=== PATIENT | female | born 1985 | race Caucasian/White ===

== ENCOUNTER 2023-06-07 11:04 | Outpatient (AMB) | payer OTHER, SELFPAY ==
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
== END 2023-06-07 11:33 | disposition home or self-care (01) ==
LOC: HO.HOP 11:04
PROVIDERS: PCP Advanced Practice Midwife; Visit Provider Clinical Nurse Specialist Psychiatric/Mental Health
DX: F43.12 Post-traumatic stress disorder, chronic (principal); F42.9 Obsessive-compulsive disorder, unspecified; F40.01 Agoraphobia with panic disorder
CPT/HCPCS: 90833; 99213

== ENCOUNTER → 2023-06-07 11:04 | Outpatient (BNVA) | payer OTHER, SELFPAY | PROVIDERS: PCP Advanced Practice Midwife; Visit Provider Clinical Nurse Specialist Psychiatric/Mental Health | DX: F43.10 Post-traumatic stress disorder, unspecified (principal); F42.9 Obsessive-compulsive disorder, unspecified; F40.01 Agoraphobia with panic disorder; Z79.899 Other long term (current) drug therapy | CPT/HCPCS: 99212 ==

== ENCOUNTER 2023-07-13 13:04 | Outpatient (AMB) | payer OTHER, SELFPAY ==
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
== END 2023-07-13 13:29 | disposition home or self-care (01) ==
LOC: HO.HOP 13:04
PROVIDERS: PCP Advanced Practice Midwife; Visit Provider Clinical Nurse Specialist Psychiatric/Mental Health
DX: F42.2 Mixed obsessional thoughts and acts (principal); F41.0 Panic disorder [episodic paroxysmal anxiety]; F31.81 Bipolar II disorder
CPT/HCPCS: 90833; 99214

== ENCOUNTER → 2023-07-13 13:04 | Outpatient (BNVA) | payer OTHER, SELFPAY | PROVIDERS: PCP Advanced Practice Midwife; Visit Provider Clinical Nurse Specialist Psychiatric/Mental Health | DX: F42.2 Mixed obsessional thoughts and acts (principal); F42.9 Obsessive-compulsive disorder, unspecified; F41.0 Panic disorder [episodic paroxysmal anxiety]; F31.81 Bipolar II disorder; F90.9 Attention-deficit hyperactivity disorder, unspecified type | CPT/HCPCS: 99212 ==

== ENCOUNTER 2023-09-13 14:42 | Outpatient (AMB) | payer OTHER, SELFPAY ==
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
== END 2023-09-13 14:42 | disposition home or self-care (01) ==
LOC: HO.HOP 14:42
PROVIDERS: PCP Advanced Practice Midwife; Visit Provider Clinical Nurse Specialist Psychiatric/Mental Health
DX: F31.77 Bipolar disorder, in partial remission, most recent episode mixed (principal); F90.2 Attention-deficit hyperactivity disorder, combined type; F41.1 Generalized anxiety disorder
CPT/HCPCS: 90833; 99214

== ENCOUNTER → 2023-09-13 14:42 | Outpatient (BNVA) | payer OTHER, SELFPAY | PROVIDERS: PCP Advanced Practice Midwife; Visit Provider Clinical Nurse Specialist Psychiatric/Mental Health ==

== ENCOUNTER 2023-10-16 15:50 | Outpatient (AMB) | payer OTHER, SELFPAY ==
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
== END 2023-10-16 15:51 | disposition home or self-care (01) ==
LOC: HO.HOP 15:50
PROVIDERS: PCP Advanced Practice Midwife; Visit Provider Clinical Nurse Specialist Psychiatric/Mental Health
DX: F41.1 Generalized anxiety disorder (principal); F90.2 Attention-deficit hyperactivity disorder, combined type; F31.77 Bipolar disorder, in partial remission, most recent episode mixed
CPT/HCPCS: 90833; 99214

== ENCOUNTER → 2023-10-16 15:50 | Outpatient (BNVA) | payer OTHER, SELFPAY | PROVIDERS: PCP Advanced Practice Midwife; Visit Provider Clinical Nurse Specialist Psychiatric/Mental Health | DX: F41.1 Generalized anxiety disorder (principal); F90.2 Attention-deficit hyperactivity disorder, combined type; F31.77 Bipolar disorder, in partial remission, most recent episode mixed ==

== ENCOUNTER 2023-12-05 13:58 | Outpatient (AMB) | payer OTHER, SELFPAY ==
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
== END 2023-12-05 13:59 | disposition home or self-care (01) ==
LOC: HO.HOP 13:58
PROVIDERS: PCP Advanced Practice Midwife; Visit Provider Clinical Nurse Specialist Psychiatric/Mental Health
DX: F41.1 Generalized anxiety disorder (principal); F90.2 Attention-deficit hyperactivity disorder, combined type; F31.77 Bipolar disorder, in partial remission, most recent episode mixed
CPT/HCPCS: 99214

== ENCOUNTER → 2023-12-05 13:58 | Outpatient (BNVA) | payer OTHER, SELFPAY | PROVIDERS: PCP Advanced Practice Midwife; Visit Provider Clinical Nurse Specialist Psychiatric/Mental Health | DX: F31.70 Bipolar disorder, currently in remission, most recent episode unspecified (principal); F41.1 Generalized anxiety disorder; F90.2 Attention-deficit hyperactivity disorder, combined type | CPT/HCPCS: 99212 ==

== ENCOUNTER 2024-02-02 11:44 | Outpatient (AMB) | payer OTHER, SELFPAY ==
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
== END 2024-02-02 11:45 | disposition home or self-care (01) ==
LOC: HO.HOP 11:44
PROVIDERS: PCP Advanced Practice Midwife; Visit Provider Clinical Nurse Specialist Psychiatric/Mental Health
DX: F41.1 Generalized anxiety disorder (principal); F90.2 Attention-deficit hyperactivity disorder, combined type; F31.77 Bipolar disorder, in partial remission, most recent episode mixed
CPT/HCPCS: 90833; 99214

== ENCOUNTER → 2024-02-02 11:44 | Outpatient (BNVA) | payer OTHER, SELFPAY | PROVIDERS: PCP Advanced Practice Midwife; Visit Provider Clinical Nurse Specialist Psychiatric/Mental Health | DX: F41.1 Generalized anxiety disorder (principal); F90.2 Attention-deficit hyperactivity disorder, combined type; F31.77 Bipolar disorder, in partial remission, most recent episode mixed | CPT/HCPCS: 99212 ==

== ENCOUNTER 2024-03-08 10:35 | Outpatient (AMB) | payer OTHER, SELFPAY ==
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
== END 2024-03-08 10:36 | disposition home or self-care (01) ==
LOC: HO.HOP 10:35
PROVIDERS: PCP Advanced Practice Midwife; Visit Provider Clinical Nurse Specialist Psychiatric/Mental Health
DX: F41.1 Generalized anxiety disorder (principal); F90.2 Attention-deficit hyperactivity disorder, combined type; F31.77 Bipolar disorder, in partial remission, most recent episode mixed
CPT/HCPCS: 99214

== ENCOUNTER 2024-05-10 10:40 | Outpatient (AMB) | payer OTHER, SELFPAY ==
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
== END 2024-05-10 10:51 | disposition home or self-care (01) ==
LOC: HO.HOP 10:40
PROVIDERS: PCP Advanced Practice Midwife; Visit Provider Clinical Nurse Specialist Psychiatric/Mental Health
DX: F41.1 Generalized anxiety disorder (principal); F90.2 Attention-deficit hyperactivity disorder, combined type; F31.77 Bipolar disorder, in partial remission, most recent episode mixed; F43.20 Adjustment disorder, unspecified
CPT/HCPCS: 90833; 99214

== ENCOUNTER → 2024-05-10 10:40 | Outpatient (BNVA) | payer OTHER, SELFPAY | PROVIDERS: PCP Advanced Practice Midwife; Visit Provider Clinical Nurse Specialist Psychiatric/Mental Health | DX: F41.1 Generalized anxiety disorder (principal); F90.2 Attention-deficit hyperactivity disorder, combined type; F31.77 Bipolar disorder, in partial remission, most recent episode mixed ==

== ENCOUNTER 2024-07-04 10:51 | Outpatient (AMB) | payer OTHER, SELFPAY ==
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
== END 2024-07-04 10:52 | disposition home or self-care (01) ==
LOC: HO.HOP 10:51
PROVIDERS: PCP Advanced Practice Midwife; Visit Provider Clinical Nurse Specialist Psychiatric/Mental Health
DX: F31.77 Bipolar disorder, in partial remission, most recent episode mixed (principal); F43.20 Adjustment disorder, unspecified; F41.1 Generalized anxiety disorder; F90.2 Attention-deficit hyperactivity disorder, combined type
CPT/HCPCS: 99214

== ENCOUNTER → 2024-07-04 10:51 | Outpatient (BNVA) | payer OTHER, SELFPAY | PROVIDERS: PCP Advanced Practice Midwife; Visit Provider Clinical Nurse Specialist Psychiatric/Mental Health | DX: F41.1 Generalized anxiety disorder (principal); F90.2 Attention-deficit hyperactivity disorder, combined type; F31.77 Bipolar disorder, in partial remission, most recent episode mixed; F43.20 Adjustment disorder, unspecified; F31.70 Bipolar disorder, currently in remission, most recent episode unspecified | CPT/HCPCS: 99212 ==

== ENCOUNTER 2024-08-15 11:59 | Outpatient (AMB) | payer OTHER, SELFPAY ==
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
== END 2024-08-15 12:00 | disposition home or self-care (01) ==
LOC: HO.HOP 11:59
PROVIDERS: PCP Advanced Practice Midwife; Visit Provider Clinical Nurse Specialist Psychiatric/Mental Health
DX: F41.1 Generalized anxiety disorder (principal); F90.2 Attention-deficit hyperactivity disorder, combined type; F31.77 Bipolar disorder, in partial remission, most recent episode mixed; F43.21 Adjustment disorder with depressed mood
CPT/HCPCS: 99214

== ENCOUNTER 2024-09-17 11:34 | Outpatient (AMB) | payer OTHER, SELFPAY ==
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
== END 2024-09-17 11:34 | disposition home or self-care (01) ==
LOC: HO.HOP 11:34
PROVIDERS: PCP Advanced Practice Midwife; Visit Provider Clinical Nurse Specialist Psychiatric/Mental Health
DX: F31.77 Bipolar disorder, in partial remission, most recent episode mixed (principal); F90.2 Attention-deficit hyperactivity disorder, combined type; F41.1 Generalized anxiety disorder; F43.21 Adjustment disorder with depressed mood
CPT/HCPCS: 99214

== ENCOUNTER 2024-10-10 12:07 | Outpatient (REF) | payer OTHER, SELFPAY ==
[2024-10-10 12:23] LABS: MANUAL DIFF FLAG NO
[2024-10-10 13:18] LABS: Hematocrit 41.3 % (37.0-47.0); Hemoglobin 13.6 g/dl (12.0-16.0); Imm Gran Abs Auto 0.03 X10*3/uL (0.00-0.03); Imm Gran Pct Auto 0.4 % (0.0-0.4); Lymphocytes Absolute Auto 1.9 X10*3/uL (1.2-4.9); Mean Corpuscular HGB Conc 32.9 g/dl (31.0-35.0); Mean Corpuscular Hemoglobin 27.1 pg (27.0-33.0); Mean Corpuscular Volume 82.3 fL (80.0-98.0); NRBC Abs Auto 0.000 X10*3/uL (0.0-0.012); NRBC Pct Auto 0.0 /100WBC (0.0-0.2); Platelet Count 256 X10*3/uL (160-400); Red Blood Count 5.02 X10*6/uL (4.20-5.50); White Blood Count 7.0 X10*3/uL (4.8-10.8)
[2024-10-10 13:33] LABS: Hemoglobin A1C 107.0596 umol/L; Total Hemoglobin (HGBA1C) 3496.9386 umol/L
[2024-10-10 13:36] LABS: Alanine Aminotransferase 18 U/L (0-31); Albumin Level 4.9 g/dL (3.5-5.0); Alkaline Phosphatase 97 U/L (39-117); Anion Gap 11 (12-20); Aspartate Amino Transferase 19 U/L (5-31); Blood Urea Nitrogen 8 mg/dL (9-16); Calcium 9.4 mg/dL (8.4-10.2); Carbon Dioxide 28 mmol/L (22-29); Chloride 104 mmol/L (96-108); Cholesterol 193 mg/dL (<200); Estimated Glomerular Filt Rate > 60; HDL Cholesterol 60 mg/dL (>40); Potassium 4.0 mmol/L (3.3-5.1); Sodium 139 mmol/L (135-145); Total Protein 7.3 g/dL (6.5-8.0); Triglycerides 98 mg/dL (<150)
== END 2024-10-10 12:08 | disposition home or self-care (01) ==
LOC: HO.LAB 12:07
PROVIDERS: Visit Provider Clinical Nurse Specialist Psychiatric/Mental Health
DX: F31.77 Bipolar disorder, in partial remission, most recent episode mixed (principal)
CPT/HCPCS: 36415; 80053; 80061; 83036; 85025

== ENCOUNTER 2024-11-04 13:19 | Outpatient (AMB) | payer OTHER, SELFPAY ==
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
--- OUTSIDE RECORDS SUMMARY | 2024-11-04 13:28 | XMS_ITS | Encounter Summary ---
Author Organization [facility] Address Formerly [facility] [employer] [address] [address] Phone Care Team Providers Care Audiovisual Technician Name Role Phone Mehrdda Ludwig MD Primary Care Provider [phone] Mehrdad Ludwig MD Unavailable Trisha Sharma MD Primary Care Provider + Pcp, Unknown Primary Care Provider Unavailabl e Encounter Details Date Type Department Care Team (Latest Contact Info) Description 07/04/2017 Transcribe Orders [facility] [address] [place] [address] Kelly Carroll ARNP Pre-employment health screening examination (Primary Dx) Social History Tobacco Use Types Packs/Day Years Used Date Smoking Tobacco: Former Cigarettes Q uit: 2016 Smokeless Tobacco: Never Alcohol Use Standard Drinks/Week Comments No 0 (1 standard drink = 0.6 oz pur e alcohol) Comments Yes Sex and Gender Information Value Date Recorded Sex Assigned at Female 04/03/2017 9:44 AM EST Legal Sex Female 6:16 PM EST Gender Identity Female 04/03/2017 9:44 AM EST Sexual Orientation Straight 04/03/2017 9: 44 AM EST Occupation Industry Job Start Date Job End Date unemployed Not on file Not on file Not on file documented as of this encounter Plan of Treatment Not on file documented as of this encounter Procedures Procedure Name Priority Date/Time Associated Diagnosis Comments MUMPS ANTIBODY, IGG Routine 07/04/2017 1 1:35 AM EDT Pre-employment health screening examination RUBELLA ANTIBODY, IGG Routine 07/04/2017 11:35 AM EDT Pre-employment health screening examination VARICELLA-ZOSTER (VZV) ANTIBODY, IGG Routine 07/04/2017 11:35 AM EDT Pre-employment health screening examination MEASLES ANTIBODY, IGG Routine 07/04/2017 11:35 AM EDT Pre-employment health screening examination T SPOT TB TEST Routine 07/04/2017 11:35 AM EDT Pre-employment health screening examination documented in this encounter Results * Varicella-zoster (VZV) antibody, IgG (07/04/2017 11:35 AM EDT) Varicella Ab(s) Positive Positive [facility] Blood (Blood) 07/04/2017 11: 35 AM EDT 07/04/2017 11:37 AM EDT Kelly DRUAN NON CULTURE MICROBIOLOGY Fi nal Result Performing Organization Address [facility]/ZIP Co de Phone Number [address] [address] * Rubella antibody, IgG (07/04/2017 11:35 AM EDT) Rubella Ab, IgG Positive Positive [facility] Blood (Blood) 07/04/2017 11: 35 AM EDT 07/04/2017 11:37 AM EDT Kelly DURAN NON CULTURE MICROBIOLOGY Fi nal Result Performing Organization Address City/[facility]/ZIP Co de Phone Number [address] [address] * Mumps antibody, IgG (07/04/2017 11:35 AM EDT) MUMPS IGG AB Positive Positive [facility] Blood (Blood) 07/04/2017 11: 35 AM EDT 07/04/2017 11:37 AM EDT Kelly DURAN NON CULTURE MICROBIOLOGY Fi nal Result Performing Organization Address [facility] Co de Phone Number [address] [address] * Measles antibody, IgG (07/04/2017 11:35 AM EDT) RUBEOLA IGG Positive Positive [facility] Blood (Blood) 07/04/2017 11: 35 AM EDT 07/04/2017 11:37 AM EDT Kelly DURAN NON CULTURE MICROBIOLOGY Fi nal Result Performing Organization Address [facility] Co de Phone Number [address] [address] * T spot TB test (07/04/2017 11:35 AM EDT) T SPOT Tuberculosis Negative [facility] Blood 07/04/2017 11:3 5 AM EDT 07/04/2017 11:38 AM EDT Kelly DURAN LAB BLOOD ORDERABLES Final Result Performing Organization Address [facility] de Phone Number [address] [address] documented in this encounter Visit Diagnoses Diagnosis Pre-employment health screening examination- Primary Health examination of defined subpopulation documented in this encounter Care Teams Audiovisual Technician Relationship Specialty Start Date End Date Mehrdad Ludwig MD [address] [place] [address] [address] [place] [phone] [email or web address] PCP - General Family Medicine 02/14/17 10/17/21 Trisha Sharma MD [address] [place] [phone] [email or web address] PCP - General 10/18/21 11/01/21 Pcp, Unknown PCP - General 11/02/21 Mehrdad Ludwig MD [address] [facility] [address] [place] [phone] [email or web address] Insurance Assigned Provider 11/25/17 documented as of this encounter Additional Source Comments The information contained in this document represents components of the legal health record. It is not the complete legal health record[facility]
== END 2024-11-04 13:20 | disposition home or self-care (01) ==
LOC: HO.HOP 13:19
PROVIDERS: PCP Advanced Practice Midwife; Visit Provider Clinical Nurse Specialist Psychiatric/Mental Health
DX: F31.77 Bipolar disorder, in partial remission, most recent episode mixed (principal); F90.2 Attention-deficit hyperactivity disorder, combined type; F41.1 Generalized anxiety disorder; F43.21 Adjustment disorder with depressed mood
CPT/HCPCS: 99214

== ENCOUNTER 2024-12-24 13:57 | Outpatient (AMB) | payer OTHER, SELFPAY ==
--- OUTSIDE RECORDS SUMMARY | 2024-12-24 15:19 | XMS_ITS | Clinical Summary ---
Author Organization [facility] Address [facility] [place] Antibodies [address] [address] Phone Care Team Providers Care Director Of Revenue Cycle Management Name Role Phone Pcp, Unknown Primary Care Provider Unavailabl e Allergies Active Allergy Reactions Criticality Noted Date Comments Citalopram Other (See Comments) 05/31/2017 Increased sx's Medications PNV no.95/ferrous fum/folic ac ( ORAL) Take by mouth. Active lurasidone (LATUDA) 40 mg Tab Take 40 mg by mouth daily. Active fluvoxaMINE (LUVOX) 100 MG tablet Take 2 tablets (200 mg total) by mouth daily. 0 Active ibuprofen (ADVIL,MOTRIN) 600 MG tablet Take 1 tablet (600 mg total) by mouth every 6 (six) hours as needed ( pain). 56 tablet 0 Active ADDERALL XR 25 mg 24 hr capsule 2 Active LORazepam (ATIVAN) 1 MG tablet 2 Active gabapentin (NEURONTIN) 300 MG capsule Take 300 mg by mouth 2 (two) times a day. 2 Active OLANZapine (ZYPREXA) 5 MG tablet Take 5 mg by mouth daily. 2 Active biotin 1 mg tablet Take 1,000 mcg by mouth 3 (three) times a day. Active ASHWAGANDHA ROOT EXTRACT ORAL Take by mouth. Activ e clonazePAM (KLONOPIN) 0.5 MG tablet Take 0.5 mg by mouth 3 (three) times a day. 3 Active ADDERALL 20 mg Tab tablet TAKE 1 TABLET BY MOUTH EVERY DAY AT 2PM 3 Active dextroamphetami ne-amphetamine (ADDERALL) 10 mg Tab tablet TAKE 2 TABLETS BY MOUTH EVERY DAY *E* 3 Active OLANZapine (ZYPREXA) 2.5 MG tablet TAKE 1 TABLET (2.5 MG) BY MOUTH TWICE DAILY NEEDED DIRECTED 3 Active clobetasol (TEMOVATE) 0.05 % ointmentIndicat ions:Lichen sclerosus APPLY FINGERTIP AMOUNT ONCE A WEEK 30 g 1 5 Active Hospital, Clinic, or Other Facility Administered Medication Ordered Dose Route Frequency Start Date End Date Status levonorgestreL (MIRENA) 20 mcg/24 hours (5 yrs) 52 mg intrauterine device 1 eachIndications:Encounter for insertion of intrauterine contraceptive device 1 each Utrn Every 5 years 01/10/2020 A ctive Active Problems Problem Noted Date Diagnosed Date Lichen sclerosus 12/16/2022 Assessment & Plan (05/27/2024 4:48 PM EST): Using Clobetasol about once a week Exam today there are no white plaques or architecture changes Plan follow up in 1 year or PRN Assessment & Plan (05/03/2023 10:41 AM EST): Mya was really anxious about LS diagnosis after last visit. Really shocked about white placques and was feeling worried about complications. Used the nightly Clobetasol for 3 months then decreased to 2-3 times a week. Feels that the burning sensation has completely resolved. O: AAO x 3,NAD External genitalia: White plaques have almost completely resolved, there is a possible small 1 mm amount of white on inner right labia. No architecture changes. Photo saved in Media A: Lichen Sclerosus with great response to Clobetasol P; Continue once a week clobetasol and daily coconut oil and plan for 6 month follow up Reassured that we are catching it early and LS can be well treated and complications occur from untreated LS Assessment & Plan (12/18/2022 10:36 AM EDT): Exam today c/w Lichen Sclerosis Hypopigmented white placques bilaterally on lower labia majora. Discussed treatment based on visual diagnosis versus vulvar biopsy first. Mya prefers to begin treatment Rx Clobetasol use nightly x 12 weeks then will taper to 2-3 times a week Info on Lichen Sclerosus given Plan 3 month follow up to assess response Marijuana use 06/04/2017 History of substance use disorder 06/01/2017 Overview (02/27/2019): Brief overview of drug use history Smoked heroin for about 15 months. Has been sober since March 2016 02/27/19 Needs utox at [place] Utox from last : 06/23/17: + cannabis, + benzo 07/21 + [facility] only, 08/22/17 + [facility] only Anxiety and depression 02/14/2017 Overview (03/08/2019): Takes Luvox for anxiety, depression, and OCD with intrusive thoughts Meds are prescribed by Shawna Esquivel, has a therapist Jaycee Sepulveda Assessment & Plan (07/24/2019 4:09 PM EDT): Feels she is coping much better now that she is on FMLA., but still experiencing anxiety at times. EPDS 12. Will need close PP follow-up Assessment & Plan (05/16/2019 4:07 PM EST): Is feeling well on her current medication regimen, is coping well and feels stable. Assessment & Plan (04/08/2019 10:08 PM EST): Mya did not feel well off her meds. She got very depressed and was having trouble functioning so worked with her therapist to start back on some of her meds. She is currently taking Luvox, Adderall and Latuda and is feeling much better and is able to function. Assessment & Plan (01/29/2019 1:40 PM EST): Mya is taking Luvox, sees psychiatrist and therapist. She is currently quite anxious about her experience with labor and delivery with Jim. She has not d/w therapist. I encouraged her to do so and also to consider discussing with Nerissa Carr who accompanied her . She agrees to this plan. Assessment & Plan (01/29/2018 12:33 PM EST): No evidence of PP depresion/anxiety Discussed activity and exercise in PP period Recommend not overdoing it - keeping with just walking until PP exam Continue therapy and meds Discussed local supports Encouraged Patricia to call with any concerns Follow up 4 wks for PP appt Patricia would like to schedule an IUD insertion when she is here for PP visit ADHD (attention deficit hyperactivity disorder) 02/14/2017 Overview (03/08/2019): Discontinued Adderall w/ assistance from Dr Esquivel Resolved Problems Problem Noted Date Diagnosed Date Resolved Date care following delivery 09/03/2019 01/02/2020 Normal , unspecified trimester 09/02/2019 01/02/2020 At risk for depression 07/24/2019 10/26/2021 Overview (07/24/2019): EPDS 12 @ 33 wks. Will need close PP follow-up History of shoulder dystocia in prior , currently 04/12/2019 01/02/2020 Overview (04/12/2019): Per note, mild dystocia - lasted about 1 minute, baby birthed with Mcrobert's, Suprapubic and Wood's Screw. was complicated by exhuastion, vacuum assisted delivery and 3rd degree laceration Needs full counseling about dystocia at upcoming visit Assessment & Plan (08/26/2019 1:56 PM EDT): Discussed delivery plan today given tentatively scheduled 1* [facility] on September 01. Barbra became very anxious and upset when discussing the plan for delivery. She cannot decide on the plan of care, feels very conflicted, anxious about but also anxious about having repeat shoulder dystocia. We summarized the issues that have been discussed to date, reviewed risks/benefits of each approach. Barbra would like to discuss the options with her . Offered video visit later in the week to finalize plan. Assessment & Plan (08/12/2019 8:26 AM EDT): Patient considering primary section in light of history of shoulder dystocia with last . Last delivery reviewed. From note, shoulder dystocia was relieved with usual maneuvers in approximately 1 minute. Patient had risk factors for shoulder dystocia-prolonged second stage, patient states over 5 hours of pushing, vacuum assisted delivery and third-degree laceration. There was no macrosomia. Risks and benefits of proceeding with a primary elective section versus spontaneous vaginal reviewed with patient. Advised patient should she choose spontaneous prolonged second stage would be avoided. Advised patient shoulder dystocia cannot be predicted or prevented. Although increased weight and maternal diabetes increases risk over 80% of shoulder dystocia was and not associated with diabetes and probably over half or not associated with macrosomia. Advised patient it is not clear with the recurrence rate is as some patients who have had previous shoulder dystocia opted for primary section for subsequent delivery. It is estimated to be at least 10%. and maternal risks of shoulder dystocia reviewed. At this time patient would like to proceed with scheduling a primary section. Advised patient this would be scheduled for 39 weeks. Use of spinal anesthesia explained. Assessment & Plan (07/24/2019 4:08 PM EDT): Mya reports that after much consideration, she is opting to proceed with delivery d/t history of complicated by exhaustion, vacuum, shoulder dystocia and 3rd degree laceration. Would like to have pre-op visit soon to discuss with MD in more detail. Assessment & Plan (06/12/2019 8:38 PM EDT): Discussed previous delivery with Barbra and reviewed increased risk of repeat SD. Patient requested that full discussion regarding primary vs vaginal delivery be deferred until partner Jack is present (will call or Facetime in). She indicates she will likely opt for vaginal delivery Assessment & Plan (05/16/2019 4:06 PM EST): She has been processing her last experience with her therapist. We will need to review this history of shoulder dystocia with her, however, she is not feeling ready to discuss experience at today's visit. Plan to re-visit in the future. Rh negative state in antepartum period 03/08/2019 01/02/2020 Overview (03/08/2019): Will need Rhogam @ 28 wks Add antibody screen to 28 wk labs Assessment & Plan (05/16/2019 4:05 PM EST): Antibody screen will be done w/ GTT. Plan for Rhogam @ 28 wks Supervision of high risk pre gnancy in third trimester 01/29/2019 01/02/2020 Overview (09/03/2019): CNM Dating criteria LMP c/w 1st tri US Group PN care Declines (evenings are too hard) O neg Rhogam 06/19/19 Chlam neg 02/27/19 Tdap 07/24/19 Flu * Hgb 11.6 GTT 130 GBS neg PPBC * screening - low risk ERA Assessment & Plan (08/12/2019 8:33 AM EDT): Patient feeling well. Notes good movement. Desires discussion regarding risks and benefits of primary section in light of her history of a shoulder dystocia with first . After patient left office it was noted she has not had a GC screening done. Patient will also need GBS at next visit. This may be done together. 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 Remote work was not an option for her, so she is now on FMLA which is feeling much better. Feeling abundant movement. Denies VB/LOF/ctx. Reviewed warning signs and indications to call. Assessment & Plan (06/12/2019 8:41 PM EDT): Feels physically well but has severe anxiety w/r/t covid-19 and her job at [employer]. No direct patient care or interaction with public, works in [employer]. 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 Advised she can continue to work on-site with precautions but also gave work recommending remote work as this has caused Barbra significant stress. Discussed nml labs. She will RTO in 5 days for Rhogam. Assessment & Plan (05/16/2019 4:05 PM EST): Mya is doing well. Feeling abundant movement. Denies VB/LOF/ctx. Had normal anatomy scan done. Discussed timing of GTT/CBC, she will plan to complete prior to next visit. Reviewed warning signs and indications to call. Assessment & Plan (04/08/2019 10:06 PM EST): Mya is here with her partner and baby Jim. Overall doing much better. Excited for anatomy scan. Would like AFP. Declines GPC Normal labor 01/12/2018 01/12/2018 Overview (01/12/2018): 0300 Arrived to CBC 0330 SVE 5/90/-2, BBW, muna regularly 0615 SROM, but still bulging forebag SVE 9/100/-2 0726 Fully, pushing with urge A: - Active labor - Cat I EFM - GBS neg - Ruptured membranes - Hx ÁNGEL - Hx of anemia in - Rh neg P: - Pt to use nitrous - Labor support PRN - Expectant management - Anticipate Normal intrauterine , antepartum 01/12/2018 01/12/2018 Uterine contractions during 01/12/2018 01/14/2018 Anemia in , third trimester 10/25/2017 02/22/2018 Overview (10/25/2017): Pepe Hgb 10.9 Does not eat red meat Will start taking daily Fe supplement Check CBC in labor Rh negative state in antepartum period 06/26/2017 02/22/2018 Overview (12/26/2017): 10/23/17 given at 28 weeks Seizure disorder 06/04/2017 02/22/2018 Overview (12/27/2017): Has had 3 seizures, unsure if related to meds or not. Has neurologist. 08/22: Self d/c'd Gabapentin as she prefers to be off of everything in to avoid medication. Has not seen neurologist to discuss this. Reports that she was started on it just in case. Advised neuro follow up, reviewed that dangers of seizures in outweigh potential in utero medication exposure. Offered to help facilitate appointment with neuro, Barbra prefers to do this on her own. Ask at next visit. 10/25 - Mya has not yet seen a neurologist or made an appt. Will accept a referral - done today. 12/14 - no-showed her neurology appt. Advised to reschedule adam 12/26 - Please encourage pt to reschedule neuro appt Supervision of other high ri sk pregnancies, third trimester 06/01/2017 01/12/2018 Overview (12/21/2017): High risk criteria: ÁNGEL, seizure disorder CNM * HR seizure disorder, off meds, has neurology appointment 12/01/17 substance abuse D/O offered [facility] again 11/30/17, willing to discuss but previous schedule was not accessible, will accept phone call from Julia Sultana PN care? Yes Rh Neg rhogam 10/23/17 Tdap 11/30/17 Hgb 10.9 10/19/17 GTT 124 GBS negative PPBC OCPs Chart reviewed 11/21/17 Insomnia 02/14/2017 04/19/2017 Acne 06/19/2013 04/19/2017 Overview (02/14/2017): Acne Encounters Date Type Department Care Team Description 11/12/2024 10:56 AM EDT - 11/12/2024 11:59 PM EDT Hospital Encounter [facility] [address] [place] [address] Kirk Saini CNM Discharge Disposition: Home or Self Care 11/12/2024 Telephone [facility] [address] [place] [address] Nini Lama LPN ? UTI from Last 3 Months Immunizations Immunization Administration Dates Next Due DTaP 12/21/1987, 7,1986,08/25 HPV, unspecified formulation 04/03/2008 HPV,quadrivalent 07/26/2011,06/26/2007, 7 Hep B Immune Globulin 06/18/2001,12/25/1998,10/27 Hepatitis B, unspecified formulation 06/18/2001, 12/25/1998,11/24/1998 Hib, unspecified formulation 12/21/1987 Influenza Quadrivalent Prese rvative Free IM 01/11/2018 Influenza, Unspecified Formulation 12/25/2016 MMR 12/12/1997,10/05/1989 Meningococcal ACWY, unspecif ied formulation 04/29/2004 Meningococcal MPSV4 04/29/2004 Polio, Unspecified Formulation 12/25/1987,1986,1986 Rho (D) Immune Globulin 06/19/2019,10/23/2017 Td (adult) 5 Lf Tetanus Toxo id, PF, Adsorbed 11/24/1998 Td, unspecified formulation 03/27/2003 Tdap 07/24/2019,11/30/2017,04/03/2008 Family History Medical History Relation Comments Arthritis Mother arthritis No Known Problems Sister Relation Status Comments Father Alive Mother Alive Sister Alive Son 1 Alive Son 2 Alive Social History Tobacco Use Types Packs/Day Years Used Date Smoking Tobacco: Former Cigarettes Q uit: 2016 Smokeless Tobacco: Never Tobacco Cessation:Counseling Given: Not Answered Alcohol Use Standard Drinks/Week Comments No 0 (1 standard drink = 0.6 oz pur e alcohol) Education Answer Date Recorded Are you interested in more education? Not on melva e 07/31/2022 Are you concerned about learning? Not on file 07/31/2022 No 07/31/2022 No 07/31/2022 Digital Access Answer Date Recorded No 08/21/2022 No 08/21/2022 Reliable internet access at home? Not on file 08/21/2022 Device with a working camera? Not on file Comments No Sex and Gender Information Value Date Recorded Sex Assigned at Female 04/03/2017 9:44 AM EST Legal Sex Female 6:16 PM EST Gender Identity Female 04/03/2017 9:44 AM EST Sexual Orientation Straight 04/03/2017 9: 44 AM EST Occupation Industry Job Start Date Job End Date unemployed Not on file Not on file Not on file Last Filed Vital Signs Vital Sign Reading Time Taken Comments Blood Pressure 110/82 05/24/2024 11:46 AM EST Pulse 99 09/05/2019 8:32 AM EDT Temperature 36.5 C (97.7 F) 09/05/2019 8:32 AM EDT Respiratory Rate 20 09/05/2019 8:32 AM EDT Oxygen Saturation 98% 09/04/2019 11:30 PM EDT Inhaled Oxygen Concentration - - Weight 69.9 kg (154 lb) 12/16/2019 12:04 PM EDT Height 165.1 cm (5' 5 ) 05/03/2023 10:06 AM EST Body Mass Index 25.63 09/02/2019 6:18 AM EDT Plan of Treatment Health Maintenance Due Date Last Done Comments DEPRESSION SCREENING 1998 SMOKING Hx and SMOKELESS TOBACCO SCREENING 06/21/1999 INFLUENZA VACCINE (#1) 2024 01/11/2018, 2016 PAP SMEAR 10/26/2024 10/26/2021, 04/29/2009 COVID-19 VACCINE ( season) 2024 IUD 01/10/2028 01/10/2020 Adult Td,Tdap Booster 07/23/2029 07/24/2019 , 11/30/2017, 04/03/2008, Additional history exists HIB VACCINES Completed 12/21/1987 MENINGOCOCCAL VACCINES (ACWY) Completed 04/29/2004, 04/29/2004 HEPATITIS C SCREENING Completed 02/27/2019 , 06/26/2017, 06/26/2017 HIV ONE-TIME SCREENING (18-65 YEARS) Completed 02/27/2019 HEPATITIS A VACCINES Aged Out No long er eligible based on patient's age to complete this topic MENINGOCOCCAL VACCINES (B) Aged Out N o longer eligible based on patient's age to complete this topic PNEUMOCOCCAL VACCINES (0-49 years) Aged Out No longer eligible based on patient's age to complete this topic Medical Devices Not on file Procedures Procedure Name Priority Date/Time Associated Diagnosis Comments URINE SEDIMENT Routine 11/12/2024 10:57 AM EDT URINALYSIS W/REFLEX URINE CULTURE Routine 11/12/2024 10:57 AM EDT Malodorous urine URINE CULTURE Routine 11/12/2024 10:57 AM EDT PAP TEST Routine 10/26/2021 12:00 AM EDT HEPATITIS C ANTIBODY, QUALITATIVE Routine 02/27/2019 3:34 PM EST Amenorrhea from Last 3 Months or Most Recently Relevant to Health Maintenance Results * (ABNORMAL) Urinalysis w/reflex Urine Culture (11/12/2024 10:57 AM EDT) COLOR Yellow Yellow [facility] CLARITY CLOUDY [facility] GLUCOSE Negative Negative [facility] BILI Negative Negative [facility] KETONES Trace(A) Negative [facility] SPECIFIC GRAVITY 1.020 1.005 - 1.030 [facility] BLOOD Negative Negative [facility] PH 6.5 5.0 - 8.0 [facility] Protein-UA 1+(A) Negative [facility] NITRITE Negative Negative [facility] Leukocyte esterase, ur 2+(A) Negative [facility] Urine (Urine) 11/12/2024 10: 57 AM EDT 11/12/2024 11:01 AM EDT us Kirk Saini CN URINE ORDERABLES Final Resul t Performing Organization Address City/State/[facility] Co de Phone Number [address] [address] * (ABNORMAL) Urine Culture (11/12/2024 10:57 AM EDT) Special Requests None Reflexed from [id number] 11/12/2024 6:50 PM EDT [facility] Urine Culture 10,000 to 100,000 colony forming units per mL ESCHERICHIA COLI(A) 11/13/2024 1:07 PM EDT [facility] Urine 11/12/2024 10:5 7 AM EDT 11/12/2024 11:01 AM EDT Narrative Organism Antibiotic Method Susceptibility Escherichia coli Ampicillin KIAN METHOD >=32: Resistant Escherichia coli Ampicillin + Sulbactam KIAN METHOD 16: Intermediate Escherichia coli Cefazolin KIAN METHOD 16: Resistant Escherichia coli Cefepime KIAN METHOD <=0.12: Susceptible Escherichia coli Ceftazidime KIAN METHOD <=0.5: Susceptible Escherichia coli Ceftriaxone KIAN METHOD 0.5: Susceptible Escherichia coli Ciprofloxacin KIAN METHOD <=0.06: Susceptible Escherichia coli Extended Spectrum B-lactamase KIAN MET HOD Negative Escherichia coli Gentamicin KIAN METHOD <=1: Susceptible Escherichia coli Levofloxacin KIAN METHOD <=0.12: Susceptible Escherichia coli Nitrofurantoin KIAN METHOD <=16: Susceptible Escherichia coli Piperacillin-tazobactam KIAN METHOD <=4: Susceptible Escherichia coli Trimethoprim/sulfamethoxazole KIAN MET HOD <=20: Susceptible Escherichia coli Cefazolin(urine) KIAN METHOD 16: Susceptible Comment: Kirk RAMIREZ MICROBIOLOGY - GENERAL ORDER MACY Final Result Performing Organization Address [facility] Co de Phone Number [address] [address] * (ABNORMAL) Urine sediment (11/12/2024 10:57 AM EDT) WBC TOO NUMEROUS TO COUNT(A) NONE SEEN /hpf [facility] RBC 0-2(A) NONE SEEN /hpf [facility] URINE EPITHELIAL 5-10(A) NONE SEEN [facility] MUCUS 3+(A) NONE SEEN /hpf [facility] BACTERIA 3+(A) NONE SEEN /hpf [facility] CAST 0-2 [facility] Comment:HYALINE CAST 11/12/2024 10:5 7 AM EDT 11/12/2024 11:01 AM EDT Kirk RAMIREZ URINE ORDERABLES Final Resul t Performing Organization Address [facility]/ZIP Co de Phone Number [address] [address] * Pap Smear (10/26/2021 12:00 AM EDT) 10/26/2021 10/27/2021 8:5 5 AM EDT Narrative SEE NARRATIVE - 10/29/2021 1:46 PM EDT [address] [address] Clinic Supervisor: Laurie Duron MD [place] [facility] Cytology Report FINAL DIAGNOSIS A. PAP SMEAR (SUREPATH) CE: SPECIMEN ADEQUACY: Satisfactory for evaluation; transformation zone present. INTERPRETATION: NEGATIVE FOR INTRAEPITHELIAL LESION OR MALIGNANCY. Electronically Signed Out By: MERARY Hernandez(ASCP) MERARY Badillo(ASCP) The Pap test is a screening test primarily for squamous cancers and precursors and has associated false-negative and false-positive results. New technologies such as liquid-based preparations may decrease but will not eliminate all false-negative results. Regular sampling and follow-up of unexplained clinical signs and symptoms are recommended to minimize false negative results. PROCEDURES/ADDENDA HPV Testing (Requested) Ordered Date: 10/27/2021 A. PAP SMEAR (SUREPATH) CE: Human Papilloma Virus Test Negative for high-risk human papillomavirus types 16, 18, 45 and the Other high risk probe set (Includes 31, 33, 35, 39, 51, 52, 56, 58, 59, 66, 68) by [employer] Onclarity HR-HPV analysis. Clinical correlation is advised. This HPV test was performed at [facility], [address] [place] [address]. This test has been FDA approved for SurePath cervical cytology specimens. The accuracy and precision of this test for all other specimen sources has been verified in the Cytopathology Laboratory of the [facility] and has not been cleared or approved by the U.S. Food and Drug Administration. Clinical correlation is advised. CLINICAL HISTORY Date of Last Menstrual Period: Not Provided Menstrual History: Unknown Contraceptive History: IUD Other Clinical Conditions: Screening Pap SPECIMEN SOURCE A: PAP SMEAR (SUREPATH) CE Patient Name: BARBRA MACHADO : 1985 (Age: 36) Sex: F Institution: [facility] Location: [facility] Date of Collection: 10/26/2021 Date of Reported: 10/29/2021 11:51 Results to: Janneth Mart MSN, BS us Janneth Mart DIRECTOR OF HEALTH EDUCATION CYTOLOGY ORDERABLES Edited Res ult - Final SEE NARRATIVE * Hepatitis C antibody, qualitative (02/27/2019 3:34 PM EST) HCV NON-REACTIV E NON-REACTI VE [facility] Blood 02/27/2019 3:34 PM EST 02/27/2019 3:45 PM EST us Janneth Mart DIRECTOR OF HEALTH EDUCATION LAB BLOOD ORDERABLES Final Res ult [address] [address] from Last 3 Months or Most Recently Relevant to Health Maintenance Insurance [address] [place] [address] [employer] [facility] [employer] [place] [address] [employer] [address] [place] [address] [address] [place] [address] [facility] [facility] [employer] [address] [place] [address] [facility] [facility] [facility] [place] [address] [place] [address] [employer] Advance Directives For more information, please contact: [phone] (9AM - 5PM [place], Monday-Monday) Documents on File Type Date Recorded 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 Healthcare Proxy 01/15/2018 3:27 PM * Full Code (Presumed) (Latest Code Status on File) Date Activated Date Inactivated Comments 09/02/2019 10:07 AM * Full Code (Presumed) Date Activated Date Inactivated Comments 09/02/2019 6:23 AM 09/02/2019 10:07 AM * Full Code (Presumed) Date Activated Date Inactivated Comments 01/12/2018 1:10 PM 01/14/2018 3:38 PM * Full Code (Presumed) Date Activated Date Inactivated Comments 01/12/2018 4:12 AM 01/12/2018 1:10 PM Healthcare Agents on File Name Relationship Healthcare Agent Relationshi p Communication Jack Rivero Life Partner .Primary Health Care Agent (Proxy form on file) Care Teams Director Of Revenue Cycle Management Relationship Specialty Start Date End Date Pcp, Unknown PCP - General 11/02/21 Additional Source Comments The information contained in this document represents components of the legal health record. It is not the complete legal health record.[facility]
--- OUTSIDE RECORDS SUMMARY | 2024-12-24 15:19 | XMS_ITS | Encounter Summary ---
Author Organization [facility] Address [address] [place] [id number] Phone Care Team Providers Care Assembler Arranger Name Role Phone Barbra Madrigal RN Primary Care Provider [phone] Mehrdad Ludwig MD Primary Care Provider [phone] Mehrdad Ludwig MD Unavailable Trisha Sharma MD Primary Care Provider + Pcp, Unknown Primary Care Provider Unavailabl e Encounter Details Date Type Department Care Team (Late st Contact Info) Description 01/24/2017 Procedure Pass [facility], Ct Scan - [address] [address] Social History Tobacco Use Types Packs/Day Years Used Date Smoking Tobacco: Former Cigarettes Smokeless Tobacco: Never Alcohol Use Standard Drinks/Week Comments Yes 0 (1 standard drink = 0.6 oz pur e alcohol) glass a wine daily Comments No Sex and Gender Information Value Date Recorded Sex Assigned at Female 04/03/2017 9:44 AM EST Legal Sex Female 6:16 PM EST Gender Identity Female 04/03/2017 9:44 AM EST Sexual Orientation Straight 04/03/2017 9: 44 AM EST documented as of this encounter Plan of Treatment Not on file documented as of this encounter Visit Diagnoses Not on filedocumented in this encounter Care Teams Assembler Arranger Relationship Specialty Start Date End Date Barbra Madrigal, RN [email or web address] PCP - General 01/24/17 02/13/17 Mehrdad Ludwig MD [address] [place] [phone] [email or web address] PCP - General Family Medicine 02/14/17 10/17/21 Trisha Sharma MD [address] [place] [phone] [email or web address] PCP - General 10/18/21 11/01/21 Pcp, Unknown PCP - General 11/02/21 Mehrdad Ludwig MD [address] [facility] [address] [place] [phone] [email or web address] Insurance Assigned Provider 11/25/17 07/28/18 documented as of this encounter Additional Source Comments The information contained in this document represents components of the legal health record. It is not the complete legal health record.[facility]
--- OUTSIDE RECORDS SUMMARY | 2024-12-24 15:19 | XMS_ITS | Encounter Summary ---
Author Organization [facility] Address [facility] [employer] [address] [address] Phone Care Team Providers Care Film Sound Coordinator Name Role Phone Mehrdad Ludwig MD Primary Care Provider [phone] Mehrdad Ludwig MD Unavailable Trisha Sharma MD Primary Care Provider + Pcp, Unknown Primary Care Provider Unavailabl e Encounter Details Date Type Department Care Team (Latest Contact Info) Description 07/04/2017 Transcribe Orders [facility] Laboratory [address] [place] [address] Kelly Carroll ARNP Pre-employment health screening examination [...] 11:35 AM EDT) Varicella Ab(s) Positive Positive [facility] Blood (Blood) 07/04/2017 11: 35 AM EDT 07/04/2017 11:37 AM EDT Kelly DURAN NON CULTURE MICROBIOLOGY Fi nal Result Performing Organization Address [facility]/ZIP Co de Phone Number [address] [address] * Rubella antibody, IgG (07/04/2017 11:35 AM EDT) Rubella Ab, IgG Positive Positive [facility] Blood (Blood) 07/04/2017 11: 35 AM EDT 07/04/2017 11:37 AM EDT Kelly DURAN NON CULTURE MICROBIOLOGY Fi nal Result Performing Organization Address City/[facility]/ZIP Co de Phone Number [address] [address] * Mumps antibody, IgG (07/04/2017 11:35 AM EDT) MUMPS IGG AB Positive Positive [facility] Blood (Blood) 07/04/2017 11: 35 AM EDT 07/04/2017 11:37 AM EDT Kelly DURAN NON CULTURE MICROBIOLOGY Fi nal Result Performing Organization Address [facility] Co de Phone Number [address] [address] * Measles antibody, IgG (07/04/2017 11:35 AM EDT) RUBEOLA IGG Positive Positive [facility] Blood (Blood) 07/04/2017 11: 35 AM EDT 07/04/2017 11:37 AM EDT Kelly DURAN NON CULTURE MICROBIOLOGY Fi nal Result Performing Organization Address [facility] Co de Phone Number [address] [address] * T spot TB test (07/04/2017 11:35 AM EDT) T SPOT Tuberculosis Negative [facility] Blood 07/04/2017 11:3 5 AM EDT 07/04/2017 11:38 AM EDT Kelly DURAN LAB BLOOD ORDERABLES Final Result Performing Organization Address [facility] de Phone Number [address] [address] documented in this encounter Visit Diagnoses Diagnosis Pre-employment health screening examination- Primary Health examination of defined subpopulation documented in this encounter Care Teams Film Sound Coordinator Relationship Specialty Start Date End Date Mehrdad Ludwig MD [address] [place] [address] [address] [place] [phone] [email or web address] PCP - General Family Medicine 02/14/17 10/17/21 Trisha Sharma MD [address] [place] [phone] [email or web address] PCP - General 10/18/21 11/01/21 Pcp, Unknown PCP - General 11/02/21 Mehrdad Ludwig MD [address] [facility] [address] [place] [phone] [email or web address] Insurance Assigned Provider 11/25/17 documented as of this encounter Additional Source Comments The information contained in this document represents components of the legal health record. It is not the complete legal health record.[facility]
--- OUTSIDE RECORDS SUMMARY | 2024-12-24 15:19 | XMS_ITS | Encounter Summary ---
Author Organization [facility] Address [facility] [employer] [facility] [address] [place] [address] Phone Care Team Providers Care Fish Butcher Name Role Phone Mehrdad Ludwig MD Primary Care Provider [phone] Trisha Sharma MD Primary Care Provider + Pcp, Unknown Primary Care Provider Unavailabl e Encounter Details Date Type Department Care Team (Late st Contact Info) Description 09/02/2019 Procedure Pass [facility] [address] [place] [address] Social History Tobacco Use Types Packs/Day Years Used Date Smoking Tobacco: Former Cigarettes Q uit: 2016 Smokeless Tobacco: Never Alcohol Use Standard Drinks/Week Comments No 0 (1 standard drink = 0.6 oz pur e alcohol) Comments No Sex and Gender Information Value [...] on filedocumented in this encounter Care Teams Fish Butcher Relationship Specialty Start Date End Date Mehrdad Ludwig MD [address] [place] [address] [address] [place] [phone] [email or web address] PCP - General Family Medicine 02/14/17 Trisha Sharma MD [address] [place] [phone] [email or web address] PCP - General 10/18/21 11/01/21 Pcp, Unknown PCP - General 11/02/21 documented as of this encounter Additional Source Comments The information contained in this document represents components of the legal health record. It is not the complete legal health record.[facility]
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
== END 2024-12-24 13:57 | disposition home or self-care (01) ==
LOC: HO.HOP 13:57
PROVIDERS: PCP Advanced Practice Midwife; Visit Provider Clinical Nurse Specialist Psychiatric/Mental Health
DX: F31.77 Bipolar disorder, in partial remission, most recent episode mixed (principal); F90.2 Attention-deficit hyperactivity disorder, combined type; F41.1 Generalized anxiety disorder; F43.21 Adjustment disorder with depressed mood
CPT/HCPCS: 99214

== ENCOUNTER 2025-03-03 12:46 | Outpatient (AMB) | payer OTHER, SELFPAY ==
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
== END 2025-03-03 12:47 | disposition home or self-care (01) ==
LOC: HO.HOP 12:46
PROVIDERS: PCP Advanced Practice Midwife; Visit Provider Clinical Nurse Specialist Psychiatric/Mental Health
DX: F31.77 Bipolar disorder, in partial remission, most recent episode mixed (principal); F90.2 Attention-deficit hyperactivity disorder, combined type; F41.1 Generalized anxiety disorder; F43.21 Adjustment disorder with depressed mood
CPT/HCPCS: 99214

== ENCOUNTER → 2025-03-03 12:46 | Outpatient (BNVA) | payer OTHER, SELFPAY | PROVIDERS: PCP Advanced Practice Midwife; Visit Provider Clinical Nurse Specialist Psychiatric/Mental Health | DX: F31.77 Bipolar disorder, in partial remission, most recent episode mixed (principal); F90.9 Attention-deficit hyperactivity disorder, unspecified type; F41.1 Generalized anxiety disorder; F43.21 Adjustment disorder with depressed mood | CPT/HCPCS: 99212 ==